=== PATIENT | female | born 1950 | race Caucasian/White ===

== ENCOUNTER 2020-10-14 12:55 | Emergency (ER) | payer OTHER ==
[~2020-10-14] VITALS: Ht 165.1 cm; Wt 108.9 kg
[2020-10-14 13:42] VITALS: BP 153/57
[2020-10-14] MEDS ORDERED: ACETAMINOPHEN 500 MG TAB PO ONE (14:30)
== END 2020-10-14 15:40 | disposition home or self-care (01) ==
LOC: ER 12:55
DX: S00.03XA Contusion of scalp, initial encounter (principal); W05.0XXA Fall from non-moving wheelchair, initial encounter; Y93.89 Activity, other specified; Y92.89 Other specified places as the place of occurrence of the external cause; Y99.8 Other external cause status
CPT/HCPCS: 70450

== ENCOUNTER 2021-02-05 15:26 | Inpatient (IN) | payer OTHER ==
[~2021-02-05] VITALS: Ht 165.1 cm; Wt 117.5 kg
[2021-02-05] MEDS ORDERED: ACETAMINOPHEN 500 MG TAB PO ONE (15:45)
[2021-02-05 17:34] LABS: Basophils # (auto) 0 10 ^3/uL (0-0.2); Basophils % (auto) 0.5 % (0.0-2.0); Eosinophils # (auto) 0 10 ^3/uL (0-0.8); Eosinophils % (auto) 0.3 % (0.0-7.0); Hematocrit 39.9 % (36.0-46.0); Hemoglobin 12.6 g/dL (12.2-16.2); Lymphocytes # (auto) 0.4 10 ^3/uL (0.4-5.4); Lymphocytes % (auto) 16.3 % (10.0-50.0); Mean Corpuscular Hemoglobin 27.2 pg (28.0-32.0); Mean Corpuscular Hgb Conc. 31.6 g/dL (32.0-36.0); Mean Corpuscular Volume 86.1 fL (80.0-100.0); Monocytes # (auto) 0.2 10 ^3/uL (0-1.3); Monocytes % (auto) 7.3 % (0.0-12.0); Neutrophils % (auto) 75.6 % (37.0-80.0); Nucleated Red Blood Cells % 0.1 %; Red Blood Cells 4.64 10^6/uL (4.0-5.20); Red Cell Distribution Width 15.9 % (11.8-14.3); White Blood Cell 2.6 10^3/uL (4.4-10.8)
[2021-02-05 17:49] LABS: Albumin 2.7 g/dL (3.4-5.0); BUN/Creatinine Ratio 21.1; Calcium 8.4 mg/dL (8.5-10.1); Potassium 3.9 mmol/L (3.5-5.1)
[2021-02-05 17:54] LABS: Bilirubin, Total 0.4 mg/dL (0.2-1.0)
[2021-02-05 18:22] LABS: Urine Bacteria FEW /hpf (None Seen); Urine Blood Negative /uL (Negative); Urine Mucus FEW (None Seen); Urine Specific Gravity 1.033 (1.001-1.035); Urine WBC 14 /hpf (0 - 5)
[2021-02-05] MEDS ORDERED: DexAMETHasone SOD PHOS 10MG/1ML VIAL INJ IV ONE (19:15)
[2021-02-05] MEDS ORDERED: ACETAMINOPHEN 500 MG TAB PO PRN (22:30)
[2021-02-05] MEDS ORDERED: MORPHINE SULFATE INJECTION 2 MG/ML SYRG IV PRN (22:30)
[2021-02-05] MEDS ORDERED: ONDANSETRON HCL 4 MG/2 ML VIAL IV PRN (22:30)
[2021-02-05] MEDS ORDERED: NITROGLYCERIN 0.4 MG SL TAB SL PRN (22:30)
[2021-02-05] MEDS ORDERED: guaiFENesin-DM 100/10mg/5ml SYR PO PRN (22:30)
[2021-02-05 23:21] LABS: Magnesium 2.2 mg/dL (1.6-2.6)
[2021-02-05 23:28] LABS: CRP High Sensitivity 2.2 mg/dL (< 0.3)
[2021-02-06 02:32] VITALS: BP 104/39
[2021-02-06 07:07] LABS: Hematocrit 38.1 % (36.0-46.0); Hemoglobin 12.1 g/dL (12.2-16.2); Mean Corpuscular Hemoglobin 27.1 pg (28.0-32.0); Mean Corpuscular Hgb Conc. 31.9 g/dL (32.0-36.0); Mean Corpuscular Volume 85.2 fL (80.0-100.0); Red Blood Cells 4.47 10^6/uL (4.0-5.20); Red Cell Distribution Width 15.9 % (11.8-14.3)
[2021-02-06 07:13] LABS: White Blood Cell 1.6 10^3/uL (4.4-10.8)
[2021-02-06 07:14] LABS: Basophils % (manual) 0 (0.0-2.0); Blast Cells 0; Eosinophils % (manual) 0 (0-7); Metamyelocytes % 0; Myelocytes % 0; Promyelocytes % 0; Reactive Lymphocytes 0
[2021-02-06 07:20] LABS: Albumin 2.7 g/dL (3.4-5.0); Calcium 8.3 mg/dL (8.5-10.1); Potassium 4.3 mmol/L (3.5-5.1)
[2021-02-06 07:23] LABS: BUN/Creatinine Ratio 29.2
[2021-02-06 07:25] LABS: Bilirubin, Total 0.3 mg/dL (0.2-1.0); Total Protein 5.6 g/dL (6.4-8.2)
[2021-02-06 07:38] LABS: Band Neutrophils % (manual) 11; Lymphocytes % (manual) 15 (10.0-50.0); Monocytes % (manual) 3 (0-12)
[2021-02-06 09:00] VITALS: BP 129/79
[2021-02-06] MEDS: ASCORBIC ACID 1,000 MG TAB PO SCH (10:04)
[2021-02-06] MEDS: CHOLECALCIFEROL (VITD3) 2,000 UNIT CAP/TAB PO SCH (10:04)
[2021-02-06] MEDS: METOPROLOL TARTRATE 25 MG TAB PO SCH ×2 (10:04→21:30)
[2021-02-06] MEDS: DexAMETHasone SOD PHOS 10MG/1ML VIAL INJ IV SCH (10:04)
[2021-02-06] MEDS: cefTRIAXone 1GM/50ML D5W 50 ML IV SCH (10:04)
[2021-02-06] MEDS: LISINOPRIL 10 MG TAB PO SCH (10:05)
[2021-02-06] MEDS: ENOXAPARIN SOD 60 MG/0.6 ML SYRINGE SC SCH ×2 (10:05→21:29)
[2021-02-06] MEDS ORDERED: REMDESIVIR PER PHARMACY 0 ML IV SCH (10:45)
[2021-02-06] MEDS: AZITHROMYCIN 500MG/ 250ML 250 ML IV SCH (11:04)
[2021-02-06] MEDS ORDERED: FLUT1AER3 INH (12:33)
[2021-02-06] MEDS ORDERED: METO25TA93 PO (12:33)
[2021-02-06] MEDS ORDERED: TRAZ300T13 PO (12:33)
[2021-02-06] MEDS ORDERED: ATOR-47 PO (12:33)
[2021-02-06] MEDS ORDERED: CITA-73 PO (12:33)
[2021-02-06] MEDS ORDERED: CEPH500C PO (12:33)
[2021-02-06] MEDS ORDERED: VENL75CA78 PO (12:33)
[2021-02-06] MEDS ORDERED: FENO48TA12 PO (12:33)
[2021-02-06 12:37] VITALS: BP 140/77
[2021-02-06] MEDS ORDERED: REMDESIVIR 200 MG in NS 210ml LOADING DOSE ADULT IV ONE (15:00)
[2021-02-06 16:43] VITALS: BP 109/70
[2021-02-06] MEDS: ALBUTEROL SULF HFA 90MCG INH 200DOSE IN PRN (19:53)
[2021-02-06] MEDS: ATORVASTATIN 20 MG TAB PO SCH (21:29)
[2021-02-06 22:00] VITALS: BP 142/81
[2021-02-07 05:00] VITALS: BP 126/78
[2021-02-07 07:32] LABS: Basophils # (auto) 0 10 ^3/uL (0-0.2); Basophils % (auto) 0.2 % (0.0-2.0); Eosinophils # (auto) 0 10 ^3/uL (0-0.8); Eosinophils % (auto) 0.1 % (0.0-7.0); Hematocrit 36.8 % (36.0-46.0); Lymphocytes # (auto) 0.5 10 ^3/uL (0.4-5.4); Lymphocytes % (auto) 10.8 % (10.0-50.0); Mean Corpuscular Hgb Conc. 32.7 g/dL (32.0-36.0); Mean Corpuscular Volume 85.7 fL (80.0-100.0); Monocytes # (auto) 0.3 10 ^3/uL (0-1.3); Monocytes % (auto) 5.8 % (0.0-12.0); Neutrophils # (auto) 3.8 10 ^3/uL (1.6-8.6); Neutrophils % (auto) 83.1 % (37.0-80.0); Red Blood Cells 4.29 10^6/uL (4.0-5.20); Red Cell Distribution Width 15.8 % (11.8-14.3); White Blood Cell 4.6 10^3/uL (4.4-10.8)
[2021-02-07 08:04] LABS: Albumin 2.5 g/dL (3.4-5.0); Calcium 8.4 mg/dL (8.5-10.1); Potassium 3.9 mmol/L (3.5-5.1)
[2021-02-07 08:09] LABS: BUN/Creatinine Ratio 35.9; Bilirubin, Total 0.4 mg/dL (0.2-1.0); Total Protein 5.2 g/dL (6.4-8.2)
[2021-02-07] MEDS: ALBUTEROL SULF HFA 90MCG INH 200DOSE IN PRN ×3 (08:36→21:53)
[2021-02-07] MEDS: DexAMETHasone SOD PHOS 10MG/1ML VIAL INJ IV SCH (08:58)
[2021-02-07] MEDS: METOPROLOL TARTRATE 25 MG TAB PO SCH ×2 (08:58→21:34)
[2021-02-07] MEDS: ASCORBIC ACID 1,000 MG TAB PO SCH (08:58)
[2021-02-07] MEDS: CHOLECALCIFEROL (VITD3) 2,000 UNIT CAP/TAB PO SCH (08:58)
[2021-02-07] MEDS: cefTRIAXone 1GM/50ML D5W 50 ML IV SCH (08:58)
[2021-02-07] MEDS: LISINOPRIL 10 MG TAB PO SCH (08:59)
[2021-02-07] MEDS: ENOXAPARIN SOD 60 MG/0.6 ML SYRINGE SC SCH ×2 (08:59→21:34)
[2021-02-07 09:00] VITALS: BP 119/69
[2021-02-07] MEDS: AZITHROMYCIN 500MG/ 250ML 250 ML IV SCH (10:30)
[2021-02-07 13:00] VITALS: BP 124/67
[2021-02-07] MEDS: REMDESIVIR 100mg 100 MG in SODIUM CHL 0.9% 230 ML IV SCH (14:35)
[2021-02-07 17:00] VITALS: BP 137/91
[2021-02-07] MEDS: ATORVASTATIN 20 MG TAB PO SCH (21:33)
[2021-02-07] MEDS: NYSTATIN TOPICAL POWDER 15GM TOP SCH (21:36)
[2021-02-07 22:00] VITALS: BP 123/66
[2021-02-07 22:01] VITALS: BP 123/66
[2021-02-08 00:10] VITALS: BP 120/60
[2021-02-08] MEDS: TEMAZEPAM 15 MG CAP PO PRN ×2 (01:06→22:48)
[2021-02-08 05:00] VITALS: BP 150/79
[2021-02-08 07:49] LABS: Potassium 4.5 mmol/L (3.5-5.1)
[2021-02-08 08:02] LABS: Albumin 2.4 g/dL (3.4-5.0); BUN/Creatinine Ratio 35.6; Bilirubin, Total 0.2 mg/dL (0.2-1.0); Calcium 8.2 mg/dL (8.5-10.1); Total Protein 5.2 g/dL (6.4-8.2)
[2021-02-08 09:00] VITALS: BP 152/83
[2021-02-08] MEDS: cefTRIAXone 1GM/50ML D5W 50 ML IV SCH (09:21)
[2021-02-08] MEDS: ALBUTEROL SULF HFA 90MCG INH 200DOSE IN PRN ×2 (09:27→22:22)
[2021-02-08] MEDS: METOPROLOL TARTRATE 25 MG TAB PO SCH ×2 (11:01→21:49)
[2021-02-08] MEDS: DexAMETHasone SOD PHOS 10MG/1ML VIAL INJ IV SCH (11:01)
[2021-02-08] MEDS: AZITHROMYCIN 250 MG TAB PO SCH (11:03)
[2021-02-08] MEDS: LISINOPRIL 10 MG TAB PO SCH (11:03)
[2021-02-08] MEDS: ASCORBIC ACID 1,000 MG TAB PO SCH (11:03)
[2021-02-08] MEDS: CHOLECALCIFEROL (VITD3) 2,000 UNIT CAP/TAB PO SCH (11:03)
[2021-02-08] MEDS: NYSTATIN TOPICAL POWDER 15GM TOP SCH ×2 (11:04→21:50)
[2021-02-08] MEDS: ENOXAPARIN SOD 60 MG/0.6 ML SYRINGE SC SCH ×2 (11:04→21:50)
[2021-02-08 13:11] VITALS: BP 122/60
[2021-02-08] MEDS: REMDESIVIR 100mg 100 MG in SODIUM CHL 0.9% 230 ML IV SCH (15:31)
[2021-02-08 17:00] VITALS: BP 110/51
[2021-02-08 21:30] VITALS: BP 133/72
[2021-02-08] MEDS: ATORVASTATIN 20 MG TAB PO SCH (21:49)
[2021-02-09 05:00] VITALS: BP 153/79
[2021-02-09] MEDS: ALBUTEROL SULF HFA 90MCG INH 200DOSE IN PRN (06:50)
[2021-02-09 09:00] VITALS: BP 114/56
[2021-02-09] MEDS: cefTRIAXone 1GM/50ML D5W 50 ML IV SCH (09:25)
[2021-02-09] MEDS: ASCORBIC ACID 1,000 MG TAB PO SCH (09:52)
[2021-02-09] MEDS: CHOLECALCIFEROL (VITD3) 2,000 UNIT CAP/TAB PO SCH (09:52)
[2021-02-09] MEDS: ENOXAPARIN SOD 60 MG/0.6 ML SYRINGE SC SCH ×2 (09:52→21:40)
[2021-02-09] MEDS: DexAMETHasone SOD PHOS 10MG/1ML VIAL INJ IV SCH (09:52)
[2021-02-09 09:53] LABS: Albumin 2.5 g/dL (3.4-5.0); Calcium 8.3 mg/dL (8.5-10.1); Potassium 3.6 mmol/L (3.5-5.1)
[2021-02-09] MEDS: AZITHROMYCIN 250 MG TAB PO SCH (09:53)
[2021-02-09] MEDS: LISINOPRIL 10 MG TAB PO SCH (09:53)
[2021-02-09 09:56] LABS: BUN/Creatinine Ratio 32.4; Bilirubin, Total 0.3 mg/dL (0.2-1.0); Total Protein 5.3 g/dL (6.4-8.2)
[2021-02-09 10:13] LABS: Basophils # (auto) 0 10 ^3/uL (0-0.2); Basophils % (auto) 0.1 % (0.0-2.0); Eosinophils # (auto) 0 10 ^3/uL (0-0.8); Hematocrit 38.6 % (36.0-46.0); Hemoglobin 12.1 g/dL (12.2-16.2); Lymphocytes # (auto) 0.5 10 ^3/uL (0.4-5.4); Lymphocytes % (auto) 17.3 % (10.0-50.0); Mean Corpuscular Hemoglobin 27.1 pg (28.0-32.0); Mean Corpuscular Hgb Conc. 31.5 g/dL (32.0-36.0); Mean Corpuscular Volume 86.3 fL (80.0-100.0); Monocytes # (auto) 0.2 10 ^3/uL (0-1.3); Monocytes % (auto) 6.8 % (0.0-12.0); Neutrophils # (auto) 2.3 10 ^3/uL (1.6-8.6); Neutrophils % (auto) 75.8 % (37.0-80.0); Nucleated Red Blood Cells % 0.1 %; Red Blood Cells 4.47 10^6/uL (4.0-5.20); Red Cell Distribution Width 15.8 % (11.8-14.3)
[2021-02-09] MEDS: NYSTATIN TOPICAL POWDER 15GM TOP SCH ×2 (10:17→21:41)
[2021-02-09] MEDS ORDERED: VENLAFAXINE HCL 37.5MG TABLET PO ONE (12:45)
[2021-02-09] MEDS ORDERED: CITALOPRAM HYDROBR 20 MG TAB PO ONE (12:45)
[2021-02-09 12:51] VITALS: BP 123/73
[2021-02-09] MEDS: METOPROLOL TARTRATE 25 MG TAB PO SCH ×2 (13:00→21:40)
[2021-02-09] MEDS: REMDESIVIR 100mg 100 MG in SODIUM CHL 0.9% 230 ML IV SCH (16:00)
[2021-02-09 17:00] VITALS: BP 132/70
[2021-02-09] MEDS: ATORVASTATIN 20 MG TAB PO SCH (21:40)
[2021-02-09 22:00] VITALS: BP 134/78
[2021-02-09] MEDS: TEMAZEPAM 15 MG CAP PO PRN (23:14)
[2021-02-10] MEDS: ALBUTEROL SULF HFA 90MCG INH 200DOSE IN PRN ×2 (00:16→06:22)
[2021-02-10 05:12] VITALS: BP 144/68
[2021-02-10 08:46] VITALS: BP 117/66
[2021-02-10] MEDS: cefTRIAXone 1GM/50ML D5W 50 ML IV SCH (09:22)
[2021-02-10 09:34] LABS: Potassium 3.9 mmol/L (3.5-5.1)
[2021-02-10 09:54] LABS: Albumin 2.4 g/dL (3.4-5.0); BUN/Creatinine Ratio 43.1; Bilirubin, Total 0.4 mg/dL (0.2-1.0); Total Protein 4.9 g/dL (6.4-8.2)
[2021-02-10] MEDS ORDERED: CITALOPRAM HYDROBR 20 MG TAB PO SCH (10:00)
[2021-02-10] MEDS ORDERED: VENLAFAXINE HCL 37.5MG TABLET PO SCH (10:00)
[2021-02-10] MEDS: ASCORBIC ACID 1,000 MG TAB PO SCH (10:06)
[2021-02-10] MEDS: CHOLECALCIFEROL (VITD3) 2,000 UNIT CAP/TAB PO SCH (10:06)
[2021-02-10] MEDS: LISINOPRIL 10 MG TAB PO SCH (10:07)
[2021-02-10] MEDS: METOPROLOL TARTRATE 25 MG TAB PO SCH (10:08)
[2021-02-10] MEDS: AZITHROMYCIN 250 MG TAB PO SCH (10:09)
[2021-02-10] MEDS: DexAMETHasone SOD PHOS 10MG/1ML VIAL INJ IV SCH (10:09)
[2021-02-10] MEDS: NYSTATIN TOPICAL POWDER 15GM TOP SCH (10:09)
[2021-02-10] MEDS: ENOXAPARIN SOD 60 MG/0.6 ML SYRINGE SC SCH (10:09)
[2021-02-10 12:46] VITALS: BP 126/66
[2021-02-10] MEDS: REMDESIVIR 100mg 100 MG in SODIUM CHL 0.9% 230 ML IV SCH (14:55)
[2021-02-10 15:02] VITALS: BP 126/66
[2021-02-10 16:49] VITALS: BP 135/64
== END 2021-02-10 18:46 | disposition home or self-care (01) | DRG 177 ==
LOC: ER 15:26 → TELE 22:21 → TELE-EAST 02-06 10:00
PROVIDERS: ADMIT Nurse Practitioner; ATTEND Internal Medicine
PROC: XW033E5 Introduction of Remdesivir Anti-infective into Peripheral Vein, Percutaneous Approach, New Technology Group 5 (ICD-10-PCS; principal; 2021-02-06)
PROC: 5A09357 Assistance with Respiratory Ventilation, Less than 24 Consecutive Hours, Continuous Positive Airway Pressure (ICD-10-PCS; 2021-02-06)
PROC: 5A09357 Assistance with Respiratory Ventilation, Less than 24 Consecutive Hours, Continuous Positive Airway Pressure (ICD-10-PCS; 2021-02-07)
PROC: 5A09357 Assistance with Respiratory Ventilation, Less than 24 Consecutive Hours, Continuous Positive Airway Pressure (ICD-10-PCS; 2021-02-08)
PROC: 5A09357 Assistance with Respiratory Ventilation, Less than 24 Consecutive Hours, Continuous Positive Airway Pressure (ICD-10-PCS; 2021-02-09)
PROC: 5A09357 Assistance with Respiratory Ventilation, Less than 24 Consecutive Hours, Continuous Positive Airway Pressure (ICD-10-PCS; 2021-02-10)
DX: U07.1 COVID-19 (principal); J12.82 Pneumonia due to coronavirus disease 2019; J96.21 Acute and chronic respiratory failure with hypoxia; N39.0 Urinary tract infection, site not specified; N17.9 Acute kidney failure, unspecified; J44.0 Chronic obstructive pulmonary disease with (acute) lower respiratory infection; Z68.41 Body mass index [BMI] 40.0-44.9, adult; E87.0 Hyperosmolality and hypernatremia; I42.9 Cardiomyopathy, unspecified; J98.11 Atelectasis; G47.33 Obstructive sleep apnea (adult) (pediatric); E66.01 Morbid (severe) obesity due to excess calories; D72.819 Decreased white blood cell count, unspecified; F32.A Depression, unspecified; F41.9 Anxiety disorder, unspecified; F51.04 Psychophysiologic insomnia; I10 Essential (primary) hypertension; Z87.891 Personal history of nicotine dependence; Z95.0 Presence of cardiac pacemaker
CPT/HCPCS: 36415; 71045; 80053; 81001; 82728; 83605; 83615; 83735; 83880; 84484; 85007; 85025; 85027; 85379; 86141; 87040; 87426; 93005; 94640; 94660; 96374; G0378; J0696; J1100